=== PATIENT | male | born 1985 | race Caucasian/White ===

== ENCOUNTER 2017-01-06 11:09 | Inpatient (IN) | payer OTHER ==
--- NOTE | ~2017-01-06 | PN ---
Unit #: [id number] #: [id number] Patient: LAURA LEIVA [id number] [facility] [address] [place] [address] [id number] I MR#: [id number] NAME: LAURA LEIVA ROOM: P183 Age: 31 Sex: M Admission Date: 01/06/2017 : 1985 Attending Physician: Snow Saavedra M.D. Admitting Physician: Sidney Alvarez NOTES DATE OF SERVICE: 01/07/2017 SUBJECTIVE Mr. Leiva is a 31-year-old white male, who was seen today and chart was reviewed and the case was discussed with the staff. He has been anxious, withdrawn, and rather seclusive to himself and appears to be in distress and discomfort as he goes through detox. He reports persistent depressive symptoms with periods of hopelessness. Meanwhile, he has been taking the medications and tolerating them fairly well. MENTAL STATUS EXAMINATION Young white male, who was casually dressed with fair personal hygiene, appears to be in no acute distress or discomfort. He was awake and alert on interaction with intact orientation. His mood was anxious with a congruent affect. His speech was slow and goal directed. He denies any suicidal or homicidal ideation. His insight and judgment remain slightly impaired. TREATMENT PLAN 1. We will continue him on his current medications and treatment protocol. We will monitor his response to the medications and make further adjustments as needed. 2. We will continue to follow up. Dictated by... Sidney Alvarez/amanda TD: 01/07/2017 13:38 JOB #: [id number] HARDEEP MCCRAY NOTES X Snow Saavedra MD PROGRESS NOTE
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
--- NOTE | ~2017-01-06 | PN ---
Unit #: [id number] #: [id number] Patient: LAURA LEIVA [id number] [facility] [address] [place] [address] [id number] I MR#: [id number] NAME: LAURA LEIVA ROOM: 83 Age: 31 Sex: M Admission Date: 01/06/2017 : 1985 Attending Physician: Snow Saavedra M.D. Admitting Physician: Snow Saavedra M.D. Primary Care Physician: Primary Care Physician Danielle MCCRAY NOTES DATE OF SERVICE 01/10/2017 DISCUSSION Mr. Leiva is a 31-year-old white male who was seen today. Chart was reviewed and case was discussed with the staff. He has been anxious and withdrawn though has been polite and pleasant and appears to be much better in his mood and daily functioning. He has axel taking the medications and tolerating them fairly well with no reported side effects. MENTAL STATUS EXAMINATION Young white male who is casually dressed with fair personal hygiene, appears to be in no acute distress or discomfort. The patient was awake and alert on interaction with intact orientation. His mood is anxious with congruent affect. His speech is slow and goal-directed. He denies any suicidal or homicidal ideations and also denies any auditory or visual hallucinations. His insight and judgment remain slightly impaired. TREATMENT PLAN 1. We will continue him on his current medications and treatment protocol. We will monitor his response to the medications and make further adjustments as needed. 2. We will continue to follow up. Dictated by... Sidney Alvarez/tomeka TD: 01/11/2017 09:57 JOB #: [id number] HARDEEP PROGRESS NOTES X Snow Saavedra MD PROGRESS NOTE
--- NOTE | ~2017-01-06 | DS ---
Unit #: [id number] #: [id number] [facility]: [facility] [id number] [facility] [address] [place] [address] [id number] MR#: [id number] NAME: LAURA LEIVA ROOM: 83 Age: 31 Sex: M Admission Date: 01/06/2017 : 1985 Discharge Date: 01/11/2017 Attending Physician: Snow Saavedra M.D. Primary Care Physician: Primary Care Physician No DISCHARGE SUMMARY IDENTIFYING DATA Mr. Leiva is a 31-year-old white male who was self-referred to the hospital. DISCHARGE DIAGNOSES Psychiatric: Opioid dependence, moderate and acute withdrawals; opioid-induced mood disorder. Medical: None. Stressors: Moderate psychosocial stressors. HISTORY OF PRESENT ILLNESS Please see initial psychiatric evaluation for details. PAST PSYCHIATRIC HISTORY Please see initial psychiatric evaluation for details. PAST MEDICAL HISTORY Please see initial psychiatric evaluation for details. HOSPITAL COURSE The patient was admitted to the adult chemical dependency unit at [facility] and was oriented to the hospital environment. Routine p.r.n. medications were initiated and he was started on the detox protocol and he was maintained on 72 hours hold; however, he was poorly compliant with treatment recommendation and once the 72 hours hold , the patient refused to stay in the treatment any longer and was denying any suicidal ideations, intent, or plan and was not seen to be danger to self or anyone else, and as such, it was decided that he will be discharged home and will continue further treatment on an outpatient basis. DISCHARGE MEDICATIONS None. DISCHARGE CONDITION Stable. PROGNOSIS Fair. Dictated by... Snow Saavedra M.D. IAA/modl Unit #: [id number] #: [id number] Patient: LAURA LEIVA TD: 02/22/2017 13:29 JOB #: [id number] DISCHARGE SUMMARY Page 1 of 1 X Snow Saavedra MD X DISCHARGE SUMMARY
--- NOTE | ~2017-01-06 | HP ---
Unit #: [id number] #: [id number] Patient: LAURA NUNN [id number] [place] [address] [id number] I MR#: [id number] NAME: LAURA NUNN ROOM: P183 Age: 31 Sex: M Admission Date: 01/06/2017 : 1985 Attending Physician: Snow Saavedra M.D. Admitting Physician: Snow Saavedra M.D. Primary Care Physician: Primary Care Physician No HISTORY AND PHYSICAL HISTORY OF PRESENT ILLNESS Laura is a 31 year old admitted to [facility] because of his abuse of opioids. PAST MEDICAL HISTORY History of opioid abuse. PAST SURGICAL HISTORY Nothing reported. ALLERGIES No known drug allergies. SOCIAL HISTORY Smokes on occasion. Drinks alcohol rarely and has a history of illicit substance abuse to include benzodiazepines and opioids. FAMILY HISTORY Medically noncontributory. REVIEW OF SYSTEMS CONSTITUTIONAL: No fever or chills. HEENT: Denies any sore throat, ear pain or runny nose. CARDIOVASCULAR: Denies chest pain, irregular heart rhythm or palpitations. CHEST: Denies shortness of breath or cough. No hemoptysis. GASTROINTESTINAL: Denies nausea, vomiting, diarrhea or chronic constipation. ENDOCRINE: Denies history of increased thirst or urination. No recent significant weight loss or gain. GENITOURINARY: Denies dysuria, frequency, or hematuria. SKIN: Denies any rashes. HEMATOLOGIC: Denies history of increased bleeding or bruising. MUSCULOSKELETAL: Denies any hot, swollen joints. No generalized muscle pain. NEUROLOGIC: Denies problems with vision or speech. No frequent, severe headaches. No numbness, tingling or weakness in any extremities. Denies loss of bladder or bowel control. CURRENT MEDICATIONS Detox protocol. PHYSICAL EXAMINATION GENERAL: Alert, well-nourished, in no apparent distress. Unit #: [id number] #: [id number] Patient: LAURA NUNN VITAL SIGNS: Blood pressure 122/70, heart rate 74, respirations 16, temperature 98.6. WEIGHT: 149. HEIGHT: 5 feet 7 inches. SKIN: Warm and dry without rash or lesion. HEENT: Normocephalic. TMs not viewed. Oral and nasal passages clear. Conjunctivae clear. PERRLA. EOMs intact. NECK: Supple without lymphadenopathy or thyromegaly. HEART: Regular rate and rhythm without murmur. LUNGS: Clear. ABDOMEN: Soft, nontender. : Not done. EXTREMITIES: No evidence of cyanosis, clubbing or edema. Moves all without focal deficit. NEUROLOGICAL: Grossly within normal limits. Cranial Nerves: II: Visual dan are intact. III, IV AND : Extraocular movements are intact. Pupils are equal, round and reactive to light. V: Facial sensation is grossly normal. VII: Facial movements and expression are normal. VIII: Auditory acuity grossly intact. IX, X: Uvula is midline. Phonation is normal. XI: Patient shrugs shoulders and turns head normally. XII: Tongue protrudes in the midline. Sensory and Motor Function: Sensory and motor sensation is grossly normal. Motor: moves all extremities well. Coordination: Gait is normal. Deep Tendon Reflexes: Intact. IMPRESSION Psychiatric admission. RECOMMENDATIONS PSYCHIATRIC: Per psychiatrist. MEDICAL: See no contraindications to participate in facility's activities. MEDICAL PROGNOSIS Good. MEDICAL CONDITION Stable. Dictated by... Mariana Olivares P.A.-C. for Sidney Lopez/kelley TD: 01/06/2017 22:44 JOB #: [id number] Unit #: [id number] #: [id number] Patient: LAURA NUNN HISTORY AND PHYSICAL X Mariana Olivares HISTORY AND PHYSICAL
--- NOTE | ~2017-01-06 | PN ---
Unit #: [id number] #: [id number] Patient: LAURA LEIVA [id number] [facility] [address] [place] [address] [id number] I MR#: [id number] NAME: LAURA LEIVA ROOM: 83 Age: 31 Sex: M Admission Date: 01/06/2017 : 1985 Attending Physician: Snow Saavedra M.D. Admitting Physician: Snow Saavedra M.D. Primary Care Physician: Primary Care Physician Danielle MEIER PROGRESS NOTES DATE 01/08/2017 DISCUSSION Mr. Leiva is a 31-year-old, white male who was seen today and chart was reviewed and case was discussed with the staff. He has been anxious, withdrawn, depressed and rather seclusive to himself. Meanwhile, he has been cooperative with treatment recommendations and has been taking the medications and tolerating them fairly well with no reported side effects. MENTAL STATUS EXAM Young white male who was casually dressed with fair personal hygiene, appears to be in no acute distress or discomfort. He was awake and alert on interaction with intact orientation. His mood was anxious and depressed with congruent affect. His speech was slow and goal directed. He denies any suicidal or homicidal ideation. His insight and judgement remains slightly impaired. TREATMENT PLAN 1. We will continue him on his current medications and treatment protocol. We will monitor his response to the medication and make further adjustments as needed. 2. We will continue to follow up. Dictated by... Sidney Alvarez/jaida TD: 01/10/2017 02:43 JOB #: [id number] Unit #: [id number] #: [id number] Patient: LAURA LEIVA PROGRESS NOTES X Snow Saavedra MD X PROGRESS NOTE
--- NOTE | ~2017-01-06 | PN ---
Unit #: [id number] #: [id number] Patient: LAURA NUNN [id number] [facility] [address] [place] [address] [id number] MR#: [id number] NAME: LAURA NUNN ROOM: 83 Age: 31 Sex: M Admission Date: 01/06/2017 : 1985 Attending Physician: Snow Saavedra M.D. Admitting Physician: Snow Saavedra M.D. Primary Care Physician: Primary Care Physician Danielle MCCRAY NOTES DATE OF SERVICE: 01/09/2017 SUBJECTIVE Mr. Knox is a 31-year-old white male, who was seen today and chart was reviewed and the case was discussed with the staff. He has been anxious, withdrawn, and seclusive to himself. Meanwhile, he has been cooperative with treatment recommendations and taking the medications and tolerating them fairly well. MENTAL STATUS EXAMINATION Young white male, who was casually dressed with fair personal hygiene, appears to be in no acute distress or discomfort. He was awake and alert on interaction with intact orientation. His mood was anxious with a congruent affect. His speech was slow and goal directed. He denies any suicidal or homicidal ideation. His insight and judgment remain slightly impaired. TREATMENT PLAN 1. We will continue him on his current medications and treatment protocol. We will monitor his response and make further adjustments as needed. 2. We will continue to follow up. Dictated by... Sidney Alvarez/amanda TD: 01/10/2017 05:30 JOB #: [id number] HARDEEP PROGRESS NOTES X Snow Saavedra MD PROGRESS NOTE
== END 2017-01-11 10:09 | disposition home or self-care (01) | DRG 885 ==
LOC: P1E 11:09
PROC: HZ2ZZZZ Detoxification Services for Substance Abuse Treatment (ICD-10-PCS; principal; 2017-01-06)
DX: F33.1 Major depressive disorder, recurrent, moderate (principal); F11.23 Opioid dependence with withdrawal; F17.210 Nicotine dependence, cigarettes, uncomplicated; F13.10 Sedative, hypnotic or anxiolytic abuse, uncomplicated; F14.10 Cocaine abuse, uncomplicated
CPT/HCPCS: 86592